=== PATIENT | female | born 1945 | race Caucasian/White ===

== ENCOUNTER → 2018-01-16 | Outpatient (CLI) | payer MEDICARE, OTHER ==
[~2018-01-16] MED LIST: ALPR.5 PO; CLIN150 PO; CONEST.3; DEPLIN PO; DIAZ5 PO; FLUO10; GLIP10 PO; LEVFLO500 PO; LEVSOD100 PO; MAGCHL64ER; MORP15ER PO; POTA10T PO; POTBIC25; PRED20 PO; ROSU10TA PO; RXALBOI INH; TRIHYD5075; [UNRECOGNIZED DRUG - OTHER]
[2018-01-16 17:19] LABS: BASOPHILS ABSOLUTE AUTO 0.05 K/mm3 (0.00-0.23); BASOPHILS PERCENT AUTO 1 % (0-2); EOSINOPHILS ABSOLUTE AUTO 0.13 K/mm3 (0.00-0.68); EOSINOPHILS PERCENT AUTO 1 % (0-6); Hematocrit 46.2 % (33.0-51.0); Hemoglobin 15.3 g/dL (11.5-16.0); IMMATURE GRAN ABSOLUTE AUTO 0.03 K/mm3 (0.00-0.10); IMMATURE GRAN PERCENT AUTO 0 % (0-1); LYMPHOCYTES ABSOLUTE AUTO 4.93 K/mm3 (0.84-5.20); LYMPHOCYTES PERCENT AUTO 47 % (21-46); MONOCYTES PERCENT AUTO 6 % (4-13); Mean Corpuscular HGB 28.8 pg (26.0-34.0); Mean Corpuscular HGB Conc 33.1 g/dL (31.5-36.5); Mean Corpuscular Volume 87 fL (80-100); Mean Platelet Volume 10.3 fL (9.1-12.4); NEUTROPHILS PERCENT AUTO 46 % (41-73); Platelet Count 269 K/mm3 (150-400); RDW Coefficient Variation 13.1 % (11.7-14.2); Red Blood Cell Count 5.31 M/mm3 (3.80-5.20); White Blood Cell Count 10.54 K/mm3 (4.00-11.30)
[2018-01-16 17:35] LABS: Anion Gap 8 mmol/L (6-16); Blood Urea Nitrogen 13 mg/dL (8-24); Bun/Creatinine Ratio 17.8 (12.0-20.0); CO2, Blood 32 mmol/L (21-32); Calcium, Blood 9.5 mg/dL (8.5-10.1); Chloride, Blood 100 mmol/L (98-108); Creatinine, Blood 0.73 mg/dL (0.40-1.00); Glomerular Filtration Rate >60 (60-); Glucose, Blood 100 mg/dL (70-99); Potassium, Blood 3.7 mmol/L (3.5-5.5); Sodium, Blood 140 mmol/L (136-145); Thyroid Stimulating Hormone 0.122 uIU/mL (0.360-4.800)
[2018-01-16 17:36] LABS: Troponin I <0.017 ng/mL (0.000-0.040)
== END | disposition home or self-care (01) ==
LOC: LAB SHORT 17:10 → LAB EV 17:10
PROVIDERS: Family Medicine
DX: R00.2 Palpitations (principal)
CPT/HCPCS: 80048; 83880; 84443; 84484; 85025

== ENCOUNTER → 2018-01-28 | Outpatient (CLI) | payer MEDICARE, OTHER ==
[2018-01-28 16:02] LABS: Source, Urine Clean Catch
[2018-01-28 17:33] LABS: Appearance, Urine Clear (Clear); Bilirubin, Urine Neg (Neg); Blood, Urine 1+ (Neg); Color, Urine Yellow (P-Yellow); Glucose Qualitative, Urine Neg (Neg); Ketones, Urine Neg (Neg); Leukocyte Esterase, Urine 2+ (Neg); Nitrite, Urine Neg (Neg); Protein, Urine Neg (Neg); Specific Gravity, Urine 1.005 (1.003-1.022); Urobilinogen, Urine NORM (Normal)
[2018-01-28 18:08] LABS: White Blood Cells, Urine 25-50 /hpf (0-5)
[2018-01-28 18:09] LABS: Bacteria Mod /hpf; Squamous Epithelial Cells Few /hpf (Few)
== END | disposition home or self-care (01) ==
LOC: LAB SHORT 15:00 → LAB 15:00 → EDSTATUS 01-28 15:20 → LAB FUT 01-28 15:20
PROVIDERS: Internal Medicine
DX: R30.0 Dysuria (principal)
CPT/HCPCS: 81001

== ENCOUNTER → 2018-02-05 | Outpatient (CLI) | payer MEDICARE, OTHER | END | disposition home or self-care (01) | LOC: LAB EV 14:04 → LAB SHORT 14:04 | DX: R35.0 Frequency of micturition (principal) | CPT/HCPCS: 87086 ==

== ENCOUNTER → 2019-07-18 | Outpatient (CLI) | payer MEDICARE, OTHER | END | disposition home or self-care (01) | LOC: LAB SHORT 17:54 → LAB 17:54 | DX: N39.0 Urinary tract infection, site not specified (principal); R30.9 Painful micturition, unspecified | CPT/HCPCS: 87077; 87086; 87186 ==

== ENCOUNTER 2020-06-26 21:37 | Emergency (ER) | payer MEDICARE, OTHER ==
[~2020-06-26] VITALS: Ht 154.9 cm; Wt 80.7 kg
[~2020-06-26 21:37] MED LIST changes: +ALBU90OI; +BASAGLAR K100 UNIT/1 SC; -FLUO10; +FLUO10 PO; +METPHE10 PO; +TEMA15 PO; +TRULICITY0.75 MG/01 SC
[2020-06-26 22:12] LABS: BASOPHILS ABSOLUTE AUTO 0.05 K/mm3 (0.00-0.23); BASOPHILS PERCENT AUTO 0 % (0-2); EOSINOPHILS ABSOLUTE AUTO 0.15 K/mm3 (0.00-0.68); EOSINOPHILS PERCENT AUTO 1 % (0-6); Hematocrit 43.6 % (33.0-51.0); Hemoglobin 14.3 g/dL (11.5-16.0); IMMATURE GRAN ABSOLUTE AUTO 0.05 K/mm3 (0.00-0.10); IMMATURE GRAN PERCENT AUTO 0 % (0-1); LYMPHOCYTES ABSOLUTE AUTO 4.96 K/mm3 (0.84-5.20); LYMPHOCYTES PERCENT AUTO 44 % (21-46); MONOCYTES ABSOLUTE AUTO 0.69 K/mm3 (0.16-1.47); MONOCYTES PERCENT AUTO 6 % (4-13); Mean Corpuscular HGB 29.5 pg (26.0-34.0); Mean Corpuscular HGB Conc 32.8 g/dL (31.5-36.5); Mean Corpuscular Volume 90 fL (80-100); Mean Platelet Volume 9.6 fL (9.1-12.4); NEUTROPHILS ABSOLUTE AUTO 5.44 K/mm3 (1.96-9.15); NEUTROPHILS PERCENT AUTO 48 % (41-73); Platelet Count 256 K/mm3 (150-400); RDW Coefficient Variation 12.6 % (11.7-14.2); RDW Standard Deviation 41.5 fL (35.1-46.3); Red Blood Cell Count 4.85 M/mm3 (3.80-5.20); White Blood Cell Count 11.34 K/mm3 (4.00-11.30)
[2020-06-26 22:29] LABS: Alanine Aminotransfer (ALT/SGP 27 U/L (12-78); Albumin/Globulin Ratio 0.8 (0.8-1.8); Alk Phos 136 U/L (50-136); Anion Gap 7 mmol/L (6-16); Aspartate Aminotrans (AST/SGOT 22 U/L (12-37); Bilirubin, Total 0.4 mg/dL (0.1-1.0); Blood Urea Nitrogen 16 mg/dL (8-24); Bun/Creatinine Ratio 22.3 (12.0-20.0); CO2, Blood 30 mmol/L (21-32); Calcium, Blood 8.5 mg/dL (8.5-10.1); Chloride, Blood 103 mmol/L (98-108); Creatinine, Blood 0.72 mg/dL (0.40-1.00); Globulin, Blood 3.6 g/dL (2.2-4.0); Glomerular Filtration Rate >60 (60-); Glucose, Blood 201 mg/dL (70-99); Potassium, Blood 3.1 mmol/L (3.5-5.5); Sodium, Blood 140 mmol/L (136-145); Total Protein, Blood 6.6 g/dL (6.4-8.2); Troponin I <0.015 ng/mL (0.000-0.040)
[2020-06-27] MEDS ORDERED: TIMO.25OPS BOTHEYES (01:55)
== END 2020-06-27 01:56 | disposition home or self-care (01) ==
LOC: ER 21:37
PROVIDERS: Emergency Medicine
DX: R55 Syncope and collapse (principal); E11.9 Type 2 diabetes mellitus without complications; E03.9 Hypothyroidism, unspecified; Z79.4 Long term (current) use of insulin; Z88.2 Allergy status to sulfonamides; Z88.0 Allergy status to penicillin; Z88.1 Allergy status to other antibiotic agents; Z88.6 Allergy status to analgesic agent; Z88.8 Allergy status to other drugs, medicaments and biological substances; Z79.899 Other long term (current) drug therapy
CPT/HCPCS: 36415; 71045; 80053; 84484; 85025; 93005; 93010; 99285-25

== ENCOUNTER 2020-08-04 12:48 | Emergency (ER) | payer MEDICARE, OTHER ==
[~2020-08-04] VITALS: Ht 154.9 cm; Wt 81.2 kg
[~2020-08-04 12:48] MED LIST changes: +TIMO.25OPS BOTHEYES
[2020-08-04 14:24] LABS: Influenza A, PCR NEGATIVE (NEGATIVE); Influenza B, PCR NEGATIVE (NEGATIVE); Resp Syncytial Virus, PCR NEGATIVE (NEGATIVE)
[2020-08-04 14:26] LABS: SARS-Cov-2 (COVID-19) PCR, MMC POSITIVE (NEGATIVE)
[2020-08-04 14:26] LABS: BASOPHILS ABSOLUTE AUTO 0.03 K/mm3 (0.00-0.23); BASOPHILS PERCENT AUTO 0 % (0-2); EOSINOPHILS ABSOLUTE AUTO 0.01 K/mm3 (0.00-0.68); EOSINOPHILS PERCENT AUTO 0 % (0-6); Hematocrit 45.5 % (33.0-51.0); Hemoglobin 15.3 g/dL (11.5-16.0); IMMATURE GRAN ABSOLUTE AUTO 0.05 K/mm3 (0.00-0.10); IMMATURE GRAN PERCENT AUTO 1 % (0-1); LYMPHOCYTES ABSOLUTE AUTO 1.55 K/mm3 (0.84-5.20); LYMPHOCYTES PERCENT AUTO 15 % (21-46); MONOCYTES ABSOLUTE AUTO 0.57 K/mm3 (0.16-1.47); MONOCYTES PERCENT AUTO 5 % (4-13); Mean Corpuscular HGB 29.8 pg (26.0-34.0); Mean Corpuscular HGB Conc 33.6 g/dL (31.5-36.5); Mean Corpuscular Volume 89 fL (80-100); Mean Platelet Volume 9.2 fL (9.1-12.4); NEUTROPHILS ABSOLUTE AUTO 8.31 K/mm3 (1.96-9.15); NEUTROPHILS PERCENT AUTO 79 % (41-73); Platelet Count 180 K/mm3 (150-400); RDW Coefficient Variation 11.9 % (11.7-14.2); RDW Standard Deviation 39.2 fL (35.1-46.3); Red Blood Cell Count 5.13 M/mm3 (3.80-5.20); White Blood Cell Count 10.52 K/mm3 (4.00-11.30)
[2020-08-04 14:53] LABS: Alanine Aminotransfer (ALT/SGP 35 U/L (12-78); Albumin, Blood 2.5 g/dL (3.4-5.0); Albumin/Globulin Ratio 0.6 (0.8-1.8); Alk Phos 120 U/L (50-136); Anion Gap 8 mmol/L (6-16); Aspartate Aminotrans (AST/SGOT 34 U/L (12-37); Bilirubin, Total 0.6 mg/dL (0.1-1.0); Blood Urea Nitrogen 12 mg/dL (8-24); Bun/Creatinine Ratio 17.4 (12.0-20.0); CO2, Blood 27 mmol/L (21-32); Calcium, Blood 8.5 mg/dL (8.5-10.1); Chloride, Blood 103 mmol/L (98-108); Creatinine, Blood 0.69 mg/dL (0.40-1.00); Globulin, Blood 4.1 g/dL (2.2-4.0); Glomerular Filtration Rate >60 (60-); Glucose, Blood 142 mg/dL (70-99); Potassium, Blood 3.2 mmol/L (3.5-5.5); Sodium, Blood 138 mmol/L (136-145); Total Protein, Blood 6.6 g/dL (6.4-8.2)
[2020-08-04] MEDS ORDERED: DEXA4 PO (15:23)
[2020-08-04] MEDS ORDERED: ALBU2.5V5 INH (15:23)
== END 2020-08-04 15:48 | disposition home or self-care (01) ==
LOC: ER 12:48
PROVIDERS: Emergency Medicine
DX: U07.1 COVID-19 (principal); E11.9 Type 2 diabetes mellitus without complications; E03.9 Hypothyroidism, unspecified; Z88.0 Allergy status to penicillin; Z88.1 Allergy status to other antibiotic agents; Z79.899 Other long term (current) drug therapy; Z79.84 Long term (current) use of oral hypoglycemic drugs; Z88.2 Allergy status to sulfonamides; Z88.8 Allergy status to other drugs, medicaments and biological substances; Z88.6 Allergy status to analgesic agent
CPT/HCPCS: 0241U; 36415; 71045; 80053; 85025; 93005; 93010; 96374; 99285-25; J1100

== ENCOUNTER 2021-01-05 12:18 | Day surgery (SDC) | payer MEDICARE, OTHER ==
[~2021-01-05] VITALS: Ht 154.9 cm; Wt 85.6 kg
[~2021-01-05 12:18] MED LIST changes: +ALBU2.5V5 INH; +DEXA4 PO
[2021-01-05] MEDS ORDERED: INSULANI (12:39)
--- NOTE | 2021-01-05 12:50 | NUR ---
01/05/21 1250 Cecily Guillaume TETRACAINE AND PLEDGET PLACED IN LEFT EYE AT 1236 BY [facility].W
--- NOTE | 2021-01-05 13:47 | NUR ---
01/05/21 7475 LEAAN EVANGELISTA RN CALLED GRANDDAUGHTER TO DISCUSS DISCHARGE INSTRUCTIONS REQUESTED. CB/TAYO
== END 2021-01-05 13:56 | disposition home or self-care (01) ==
LOC: ORSCSDS 12:18
PROVIDERS: Ophthalmology
PROC: 08RK3JZ Replacement of Left Lens with Synthetic Substitute, Percutaneous Approach (ICD-10-PCS; principal; 2021-01-05 13:30)
DX: H25.12 Age-related nuclear cataract, left eye (principal); I10 Essential (primary) hypertension; E66.9 Obesity, unspecified; Z68.35 Body mass index [BMI] 35.0-35.9, adult; F41.8 Other specified anxiety disorders; Z79.899 Other long term (current) drug therapy
CPT/HCPCS: 82947; J2001; J2250; J3010; J3301; J7040; V2632

== ENCOUNTER 2021-11-27 03:51 | Emergency (ER) | payer MEDICARE, OTHER ==
[~2021-11-27] VITALS: Ht 154.9 cm; Wt 78.0 kg
[~2021-11-27 03:51] MED LIST changes: +INSULANI
[2021-11-27] MEDS ORDERED: Zithromax250 MG PO (05:22)
[2021-11-27] MEDS ORDERED: Prednisone20 MG PO (05:22)
== END 2021-11-27 05:58 | disposition home or self-care (01) ==
LOC: ER 03:51
DX: J44.1 Chronic obstructive pulmonary disease with (acute) exacerbation (principal); E11.9 Type 2 diabetes mellitus without complications; E03.9 Hypothyroidism, unspecified; Z88.0 Allergy status to penicillin; Z88.8 Allergy status to other drugs, medicaments and biological substances; Z88.1 Allergy status to other antibiotic agents; Z79.4 Long term (current) use of insulin; Z79.899 Other long term (current) drug therapy
CPT/HCPCS: 71045; A9270; J7512

== ENCOUNTER 2022-08-19 11:08 | Inpatient (IN) | payer MEDICARE, OTHER ==
[~2022-08-19] VITALS: Ht 154.9 cm; Wt 90.0 kg
[~2022-08-19 11:08] MED LIST changes: -INSULANI; +INSULANI SC; +Prednisone20 MG PO; +Zithromax250 MG PO
[2022-08-19 11:40] LABS: BASOPHILS ABSOLUTE AUTO 0.15 K/mm3 (0.00-0.23); BASOPHILS PERCENT AUTO 0 % (0-2); EOSINOPHILS ABSOLUTE AUTO 0.01 K/mm3 (0.00-0.68); EOSINOPHILS PERCENT AUTO 0 % (0-6); Hematocrit 42.1 % (33.0-51.0); Hemoglobin 14.5 g/dL (11.5-16.0); IMMATURE GRAN ABSOLUTE AUTO 0.85 K/mm3 (0.00-0.10); IMMATURE GRAN PERCENT AUTO 2 % (0-1); LYMPHOCYTES ABSOLUTE AUTO 2.87 K/mm3 (0.84-5.20); LYMPHOCYTES PERCENT AUTO 8 % (21-46); MONOCYTES ABSOLUTE AUTO 2.21 K/mm3 (0.16-1.47); MONOCYTES PERCENT AUTO 6 % (4-13); Mean Corpuscular HGB 29.5 pg (26.0-34.0); Mean Corpuscular HGB Conc 34.4 g/dL (31.5-36.5); Mean Corpuscular Volume 86 fL (80-100); Mean Platelet Volume 10.2 fL (9.1-12.4); NEUTROPHILS ABSOLUTE AUTO 29.78 K/mm3 (1.96-9.15); NEUTROPHILS PERCENT AUTO 83 % (41-73); Platelet Count 204 K/mm3 (150-400); RDW Coefficient Variation 12.2 % (11.7-14.2); RDW Standard Deviation 37.6 fL (35.1-46.3); Red Blood Cell Count 4.91 M/mm3 (3.80-5.20); White Blood Cell Count 35.87 K/mm3 (4.00-11.30)
[2022-08-19 11:55] LABS: Albumin, Blood 2.8 g/dL (3.4-5.0); Albumin/Globulin Ratio 0.8 (0.8-1.8); Bun/Creatinine Ratio 15.9 (12.0-20.0); Calcium, Blood 8.5 mg/dL (8.5-10.1); Creatinine, Blood 1.45 mg/dL (0.40-1.00); Globulin, Blood 3.5 g/dL (2.2-4.0); Potassium, Blood 3.3 mmol/L (3.5-5.5); Total Protein, Blood 6.3 g/dL (6.4-8.2)
[2022-08-19 14:31] LABS: Source, Urine Clean Catch
[2022-08-19 14:34] LABS: Appearance, Urine Hazy (Clear); Bilirubin, Urine Neg (Neg); Blood, Urine 1+ (Neg); Glucose Qualitative, Urine 2+ (Neg); Ketones, Urine Neg (Neg); Leukocyte Esterase, Urine Neg (Neg); Nitrite, Urine Neg (Neg); Protein, Urine 1+ (Neg); Urobilinogen, Urine NORM (Normal)
[2022-08-19 14:42] LABS: Color, Urine Pale Yellow (P-Yellow)
[2022-08-19 14:44] LABS: Bacteria Many /hpf
[2022-08-19 14:45] LABS: Red Blood Cells, Urine 0-2 /hpf (0-2); Squamous Epithelial Cells Few /hpf (Few)
[2022-08-19] MEDS ORDERED: FLOVENT HFA12 GM (18:02)
[2022-08-19] MEDS ORDERED: ROSUVASTATIN CA20 MG PO (18:04)
--- NOTE | 2022-08-19 18:53 | NUR ---
ADMISSION: PT ADMITTED FROM ER, ARRIVES A&Ox4, ANSWERS QUESTIONS APPROPRIATELY. PT DENIES SOB, O2 SATS >93% ON RA, DRY COUGH NOTED. SR ON MONITOR W/RATE 80s-90s. PT DENIES CP BUT DOES REPORT PAIN TO R SHOULDER/BACK AREA, PT RECEIVED PAIN MEDICATION IN ER AND REPORTS SOME IMPROVEMENT TO PAIN. PT AMBULATES TO/FROM RESTROOM W/SBA, TOLERATES WELL AND REPORTS MINIMAL WEAKNESS/DIZZINESS. MESSAGE LEFT FOR PALLIATIVE CARE DEPT RE: CONSULTATION. PT RESTING QUIETLY IN ROOM W/GRANDDAUGHTER AT BEDSIDE. WILL CONTINUE TO MONITOR AND TREAT ACCORDINGLY UNTIL CHANGE OF SHIFT.
[2022-08-20 04:59] LABS: Hemoglobin 12.3 g/dL (11.5-16.0); Mean Corpuscular HGB Conc 34.2 g/dL (31.5-36.5); Mean Corpuscular Volume 88 fL (80-100); Platelet Count 146 K/mm3 (150-400); RDW Coefficient Variation 12.5 % (11.7-14.2); RDW Standard Deviation 39.9 fL (35.1-46.3); White Blood Cell Count 31.75 K/mm3 (4.00-11.30)
--- NOTE | 2022-08-20 05:44 | NUR ---
SHIFT SUMMARY A/Ox4 AND COOPERATIVE WITH CARE PROVIDED BY MEMBERS OF STAFF. ANSWERS QUESTIONS APPROPRIATELY AND IS ABLE TO MAKE NEEDS KNOWN. PT DID NOT GET MUCH SLEEP LAST NIGHT FOR SHE MADE FREQUENT TRIPS TO THE BATHROOM TO VOID. MAINTAINED SPO2 >90% ON RA, INCREASED RR/SOB NOTED WITH EXERTION. CARDIAC ACUNA, NO C/O CP OR PRESSURE T/O MY SHIFT WITH HR HOLDING STEADY IN THE 90'S. SBO HAS BEEN SOFT FOR MOST OF THE SHIFT, BUT MAP >65 T/O THE NIGHT. CONTINUES TO GET FLUID AND MEDS FOR PAIN MANAGMENT ORDERED PER EMAR. BOTH BLOOD CULTURES CAME BACK POSITVE FOR GRAM POSITIVE COCCI IN CHAINS. SOME OF PT'S HOME DOSING OF LONG ACTING INSULIN STARTED LAST NIGHT. FAM STAYED IN ROOM WITH PT OVER NIGHT. NO NEW ORDERS AT THIS TIME, WILL REPORT TO DAY SHIFT RN
[2022-08-20 05:46] LABS: Bun/Creatinine Ratio 23.3 (12.0-20.0); Calcium, Blood 7.6 mg/dL (8.5-10.1); Creatinine, Blood 1.03 mg/dL (0.40-1.00); Potassium, Blood 4.9 mmol/L (3.5-5.5); Thyroxine (T4) 8.5 ug/dL (4.8-13.9)
[2022-08-20] MEDS ORDERED: PROZAC40 MG PO (08:09)
[2022-08-20] MEDS ORDERED: LORAZEPAM0.5 MG PO (10:25)
--- NOTE | 2022-08-20 16:24 | NUR ---
SHIFT SUMMARY/TRANSFER: PT A&Ox4 T/OUT DAY, TREATED x1 FOR C/O FEELING ANXIOUS, COOPERATIVE W/CARE. OCCASIONAL, CONGESTED COUGH. PT DENIES SOB, MILD DYSPNEA NOTED W/ACTIVITY, O2 SATS >93% ON RA. SR ON MONITOR W/RATE 80s-100s, PT DENIES CHEST PAIN. PT REPORTS MILD WEAKNESS, SBA FOR AMBULATION, TOLERATES WELL. ADA DIET HAS BEEN ORDERED, ACHS BLOOD GLUCOSE CHECKS IN PLACE. HOME MEDICATIONS HAVE BEEN ORDERED AND ADMINISTERED PER ORDERS. PT STATUS CHANGED TO MEDICAL, RECEIVED NEW ROOM, TRANSFERS W/OUT INCIDENT. REPORT TO CARO, RECEIVING RN.
--- NOTE | 2022-08-20 18:00 | NUR ---
SHIFT SUMMARY 1645 RECEIVED PT TO 330 VIA BED FROM PCU 19. PT'S FAMILY TO WITH PT. FAMILY WANTING A RECLINER OBTAINED IMMEDIATELY TO IN ORDER TO SPEND THE NIGHT. PT WANTING MAINTENCE CALLED IMMEDIATELY TO TURN DOWN HEAT; [facility]. IV ABX STARTED PER EMAR. IVF'S INFUSING WELL. PT ADMITTED FOR RECURRENT PNM. ORIENTED TO . CALL LT IN REACH.
[2022-08-21 05:49] LABS: Hematocrit 33.7 % (33.0-51.0); Hemoglobin 11.3 g/dL (11.5-16.0); Mean Corpuscular HGB Conc 33.5 g/dL (31.5-36.5); Mean Corpuscular Volume 87 fL (80-100); Mean Platelet Volume 10.5 fL (9.1-12.4); Platelet Count 160 K/mm3 (150-400); RDW Coefficient Variation 12.8 % (11.7-14.2); RDW Standard Deviation 40.6 fL (35.1-46.3); Red Blood Cell Count 3.89 M/mm3 (3.80-5.20)
[2022-08-21 06:25] LABS: Bun/Creatinine Ratio 18.5 (12.0-20.0); Calcium, Blood 8.1 mg/dL (8.5-10.1); Creatinine, Blood 0.81 mg/dL (0.40-1.00); Potassium, Blood 3.3 mmol/L (3.5-5.5)
--- NOTE | 2022-08-21 11:14 | NUR ---
CONTACTED PT C/O RUQ PAIN W/ INSPIRATION AND EXPIRATION. REPOSITIONED, RECENTLY MEDICATED PER EMAR FOR PAIN. HX OF GALBLADDER REMOVAL.
--- NOTE | 2022-08-21 13:03 | NUR ---
CASE CONF WITH BOAZ RN, SHE REPORTS PT IS EXPERIENCING INCREASED R SIDED SHARP CP WITH ACTIVITY AND BREATHING, POSSIBLY PLEURITIC PAIN AND WAS MEDICATED WITH PAIN MEDICATION AND ANXIETY MEDICATION. MET WITH PT ANS FAMILY IN ROOM. PT IS SITTING UPRIGHT IN BED, REPORTS SHE SLEPT WELL LAST NIGHT FOR THE FIRST TIME. C/O SHARP STABBING R SIDED CP WHICH MAKES IT DIFF TO MOVE OR TAKE DEEP BREATHS. PT REPORTS PAIN AND ANXIETY MEDICATION SEEMS TO HELP. FAMILY WITH CONCERNS ABOUT PT PAIN MANAGEMENT, PROV. EDUCATION THAT THE PAIN MEDICATION IS NEEDED EVERY 6 HOURS AND SHE WILL NEED TO ASK FOR IT, THEY VU. CONCERNS WITH PT SHE FEELS VERY FATIGUED AND CONCERNS OF PAIN WITH MOVEMENT. ENCOURAGE PT TO ASK FOR PAIN MEDICATION TO STAY ON TOP OF HER PAIN SO SHE CAN PARTICIPATE IN PT SO SHE CAN GET STRONGER TO GO HOME, SHE VU. ADVISED I WILL ASK FOR AN INCENTIVE SPIROMETER TO HELP PT TAKE DEEPER BREATHS. PER DTR, PT LIVES WITH HER GRANDDAUGHTER. MINDY WHO TAKES CARE OF HER. SHE HAS NO CONCERNS AT THIS TIME ABOUT PT GOING DIGNA UPON DC. CURRENT PLAN IS TO GO HOME WITH HH. PLAN TO CALL GRANDTR TO UPDATE HER AND DISCUSS ANY OTHER NEEDS OR CONCERNS. RN AT THE BEDSIDE, PT REPORTS PAIN IS STILL 8/10, RECEIVED PAIN MEDICATION APPROX 45 MINUTES AGO AND WILL GIVE SOME TYLENOL. CALL PLACED TO DR GUILLEN TO GET ORDER FOR INCENTIVE SPIROMETER, HE IS AGREEABLE AND WILL PLACE THE ORDER. RN UPDATED. PALLIATIVE CARE WILL CONT TO FOLLOW
--- NOTE | 2022-08-21 13:30 | NUR ---
TC TP PT MINDY, PT CG AND GRMIRZATR. UPDATED HER ON PT STATUS TODAY. MINDY HAS NO CONCERNS, JUST WANTS PT TO FEEL BETTER AND BE STRONG ENOUGH TO GO HOME SAFELY. SHE IS INTERESTED IN HH PT WHEN PT IS DCD. PT CURRENTLY HAS 4WW AND BS COMMODE AT HOME AND MINDY HELPS HER WITH ADLS ETC AT HOME. ADVISED HER THAT PALLIATIVE CARE WILL CONTINUE TO FOLLOW, HELP WITH SYMPTOM MANAGEMENT AND PROVIDED SUPPORT NEEDED AND SHE IS GRATEFUL FOR THIS. ADVISED I WILL MAKE ANOTHER VISIT TOMORROW AND GIVE HER A CALL IF SHE ISNT ABLE TO COME TO THE HOSPITAL. SHE IS AGREEABLE TO THIS. PALLIATIVE CARE WILL CONT TO FOLLOW.
--- NOTE | 2022-08-21 18:04 | NUR ---
SHIFT SUMMARY PT A&OX4 AND IN PLEASENT MOOD T/O SHIFT. PAIN MEDICATED PER EMAR. DAUGHTER AT BEDSIDE T/O SHIFT. CALL LIGHT W/IN REACH. C/O PAIN UNDER RIGHT BREAST REPORTED TO I/S PROVIDED AND PT EDUCATED ON USE. VSS. CALL LIGHT W/ IN REACH. TOLERATING PO INTAKE WELL.
[2022-08-22 05:21] LABS: Hematocrit 35.9 % (33.0-51.0); Hemoglobin 11.8 g/dL (11.5-16.0); Mean Corpuscular HGB 28.7 pg (26.0-34.0); Mean Corpuscular HGB Conc 32.9 g/dL (31.5-36.5); Mean Corpuscular Volume 87 fL (80-100); Mean Platelet Volume 10.3 fL (9.1-12.4); Platelet Count 166 K/mm3 (150-400); RDW Coefficient Variation 12.8 % (11.7-14.2); RDW Standard Deviation 40.9 fL (35.1-46.3); Red Blood Cell Count 4.11 M/mm3 (3.80-5.20)
[2022-08-22 05:39] LABS: Bun/Creatinine Ratio 20.1 (12.0-20.0); Calcium, Blood 8.7 mg/dL (8.5-10.1); Creatinine, Blood 0.7 mg/dL (0.40-1.00); Potassium, Blood 4.2 mmol/L (3.5-5.5)
--- NOTE | 2022-08-22 18:18 | NUR ---
SHIFT SUMMARY NO ACUTE EVENTS. PTN C/O OF PAIN RIGHT RIB AREA AND BACK THROUGH TO THE BACK. CHEST X-RAY DONE TODAY. DAUGHTER IN ROOM, ADVOCATE FOR PTN. PTN HAS SOME ANXIETY, COVERED PER EMAR. CONTINUE TO MONITOR.
--- NOTE | 2022-08-23 03:24 | NUR ---
SHIFT SUMMARY NOC PT A/O X 4. PLEASANT AND COOPERATIVE WITH CARE. PT DAUGHTER STAYED NIGHT WITH PT. PT HAD C/O OF PAIN UNDER R RIB CAGE AND MEDICATED WITH NORCO. PT ALSO HAD SOME ANXIETY AND MEDICATED PER EMAR. PT IS CURRENTLY RESTING WITH BED IN LOWEST POSITION, AND CALL LIGHT WITHIN REACH.
--- NOTE | 2022-08-23 03:50 | NUR ---
SHIFT SUMMARY NOC PT A/O X 4. PLEASANT AND COOPERATIVE WITH CARE. PT DAUGHTER STAYED NIGHT WITH PT. PT HAD C/O OF PAIN UNDER R RIB CAGE AND MEDICATED WITH NORCO. PT ALSO HAD SOME ANXIETY AND MEDICATED PER EMAR. PT HS CBG WAS 324 AND 2 UNITS SHORT ACTING INSULIN GIVEN FOR COVERAGE. PT IS CURRENTLY RESTING WITH BED IN LOWEST POSITION, AND CALL LIGHT WITHIN REACH.
[2022-08-23] MEDS ORDERED: Norco 5-325 Ta1 EACH PO (09:58)
[2022-08-23] MEDS ORDERED: AZIT500 PO (09:59)
--- NOTE | 2022-08-23 15:51 | NUR ---
SHIFT SUMMARY PTN D/C AT 1230. D/C PAPERWORK REVIEWED WITH PTN AND FAMILY. MEDICATIONS NEEDED FAXED TO PHARMACY AND HARD COPIES OF MEDICATIONS WRITTEN NEEDED. PTN'S DAUGHTER STAYED WITH PTN ENTIRE VISIT, ADVOCATE. PTN CONTINUED TO HAVE PAIN, BUT LESS PAIN AND ANXIETY THIS SHIFT, ANTICIPATING D/C TO HOME. NO SOB NOTED THIS SHIFT, SOME COURSE SOUNDS NOTED TO LUNGS. PTN IS USING INCENTIVE SPIROMETER REGULARLY INSTRUCTED. PTN ESCORTED VIA WC BY DESI ETIENNE TO EXIT WHERE MET BY SIOMARA FOR TRANSPORT HOME.
== END 2022-08-23 12:20 | disposition home health service (06) | DRG 871 ==
LOC: ER 11:08 → PCU 15:56 → MEDS 08-20 16:08
PROVIDERS: Student in an Organized Health Care Education/Training Program; ADMIT Internal Medicine
DX: A40.3 Sepsis due to Streptococcus pneumoniae (principal); J13 Pneumonia due to Streptococcus pneumoniae; R65.20 Severe sepsis without septic shock; N17.9 Acute kidney failure, unspecified; E87.20 Acidosis, unspecified; E87.1 Hypo-osmolality and hyponatremia; E87.6 Hypokalemia; E03.9 Hypothyroidism, unspecified; R09.1 Pleurisy; M54.2 Cervicalgia; M79.10 Myalgia, unspecified site; F41.8 Other specified anxiety disorders; E11.65 Type 2 diabetes mellitus with hyperglycemia; Z88.0 Allergy status to penicillin; Z88.8 Allergy status to other drugs, medicaments and biological substances; Z88.1 Allergy status to other antibiotic agents; Z88.2 Allergy status to sulfonamides; Z79.899 Other long term (current) drug therapy; Z79.51 Long term (current) use of inhaled steroids; Z79.4 Long term (current) use of insulin; Z79.52 Long term (current) use of systemic steroids; Z79.2 Long term (current) use of antibiotics; Z86.79 Personal history of other diseases of the circulatory system; Z90.710 Acquired absence of both cervix and uterus; Z90.49 Acquired absence of other specified parts of digestive tract; Z98.890 Other specified postprocedural states; Z86.16 Personal history of COVID-19; Z87.01 Personal history of pneumonia (recurrent)
CPT/HCPCS: 36415; 71046; 71260; 80048; 80053; 81001; 82947; 83605; 84145; 84436; 84484; 85025; 85027; 87040; 87086; 87186; 93005; 93010; 94640; 94664; 94760; 96365-59; 96366; 96367; 96375-59; 97110; 97116; 97162; 97530; 99285-25; A9270; J0780; J1650; J1815; J1956; J2405; J3370; J7030; J7512; Q9967

== ENCOUNTER 2022-09-24 11:51 | Emergency (ER) | payer MEDICARE, OTHER ==
[~2022-09-24] VITALS: Ht 162.6 cm; Wt 87.1 kg
[~2022-09-24 11:51] MED LIST changes: +AZIT500 PO; +FLOVENT HFA12 GM; +LORAZEPAM0.5 MG PO; +Norco 5-325 Ta1 EACH PO; +PROZAC40 MG PO; +ROSUVASTATIN CA20 MG PO
[2022-09-24 12:35] LABS: BASOPHILS ABSOLUTE AUTO 0.04 K/mm3 (0.00-0.23); BASOPHILS PERCENT AUTO 0 % (0-2); EOSINOPHILS ABSOLUTE AUTO 0.13 K/mm3 (0.00-0.68); EOSINOPHILS PERCENT AUTO 1 % (0-6); Hematocrit 46.9 % (33.0-51.0); Hemoglobin 15.2 g/dL (11.5-16.0); IMMATURE GRAN ABSOLUTE AUTO 0.04 K/mm3 (0.00-0.10); IMMATURE GRAN PERCENT AUTO 0 % (0-1); LYMPHOCYTES ABSOLUTE AUTO 3.43 K/mm3 (0.84-5.20); LYMPHOCYTES PERCENT AUTO 38 % (21-46); MONOCYTES ABSOLUTE AUTO 0.51 K/mm3 (0.16-1.47); MONOCYTES PERCENT AUTO 6 % (4-13); Mean Corpuscular HGB 28.4 pg (26.0-34.0); Mean Corpuscular HGB Conc 32.4 g/dL (31.5-36.5); Mean Corpuscular Volume 88 fL (80-100); Mean Platelet Volume 10.3 fL (9.1-12.4); NEUTROPHILS ABSOLUTE AUTO 4.84 K/mm3 (1.96-9.15); NEUTROPHILS PERCENT AUTO 54 % (41-73); Platelet Count 201 K/mm3 (150-400); RDW Coefficient Variation 12.7 % (11.7-14.2); RDW Standard Deviation 40.7 fL (35.1-46.3); Red Blood Cell Count 5.35 M/mm3 (3.80-5.20); White Blood Cell Count 8.99 K/mm3 (4.00-11.30)
[2022-09-24 12:55] LABS: Albumin, Blood 3.5 g/dL (3.4-5.0); Bilirubin, Total 0.5 mg/dL (0.1-1.0); Bun/Creatinine Ratio 21.5 (12.0-20.0); Calcium, Blood 9.1 mg/dL (8.5-10.1); Creatinine, Blood 0.7 mg/dL (0.40-1.00); Globulin, Blood 3.6 g/dL (2.2-4.0); Magnesium, Blood 1.8 mg/dL (1.6-2.4); Potassium, Blood 3.9 mmol/L (3.5-5.5); Total Protein, Blood 7.1 g/dL (6.4-8.2)
[2022-09-24] MEDS ORDERED: ELIQUIS5 M2 PO (16:57)
[2022-09-24 17:28] VITALS: BP 152/60
== END 2022-09-24 18:07 | disposition home or self-care (01) ==
LOC: ER 11:51
PROVIDERS: Physician Assistant
DX: I48.91 Unspecified atrial fibrillation (principal); E11.9 Type 2 diabetes mellitus without complications; I10 Essential (primary) hypertension; E03.9 Hypothyroidism, unspecified; Z88.5 Allergy status to narcotic agent; Z88.0 Allergy status to penicillin; Z88.1 Allergy status to other antibiotic agents; Z88.2 Allergy status to sulfonamides; Z88.8 Allergy status to other drugs, medicaments and biological substances; Z79.899 Other long term (current) drug therapy; Z79.4 Long term (current) use of insulin
CPT/HCPCS: 36415; 71045; 71260; 80053; 82947; 83735; 83880; 85025; 93005; 93010; 96374-59; 99285-25; A9270; Q9967

== ENCOUNTER → 2023-06-27 | Outpatient (CLI) | payer MEDICARE, OTHER ==
[~2023-06-27] MED LIST changes: +ELIQUIS5 M2 PO
== END ==
LOC: LAB 14:12 → LAB SHORT 14:12
DX: R30.0 Dysuria (principal)
CPT/HCPCS: 87077; 87086; 87186

== ENCOUNTER → 2023-08-29 | Outpatient (CLI) | payer MEDICARE, OTHER ==
[~2023-08-29] MED LIST changes: +ALBU90OI INH; +Crestor20 MG PO; +Crestor40 MG PO; +FAMO20 PO; +Flonase 0.05% N16 GM; +GUAI600T33 PO; +LEVAQUIN750 MG PO; +LORA.5 PO; +MELA3 PO; +METO50ER PO; +ROBITUSSIN30 MG/511 PO; +SERT100 PO; +Tessalon200 MG PO; +XARELTO20 MG PO
[2023-08-29 18:55] LABS: BASOPHILS ABSOLUTE AUTO 0.07 K/mm3 (0.00-0.23); BASOPHILS PERCENT AUTO 0 % (0-2); EOSINOPHILS ABSOLUTE AUTO 0.16 K/mm3 (0.00-0.68); EOSINOPHILS PERCENT AUTO 1 % (0-6); Hemoglobin 14.8 g/dL (11.5-16.0); IMMATURE GRAN ABSOLUTE AUTO 0.07 K/mm3 (0.00-0.10); IMMATURE GRAN PERCENT AUTO 0 % (0-1); LYMPHOCYTES ABSOLUTE AUTO 4.68 K/mm3 (0.84-5.20); LYMPHOCYTES PERCENT AUTO 24 % (21-46); MONOCYTES ABSOLUTE AUTO 1.43 K/mm3 (0.16-1.47); MONOCYTES PERCENT AUTO 7 % (4-13); Mean Corpuscular HGB 28.7 pg (26.0-34.0); Mean Corpuscular HGB Conc 33.6 g/dL (31.5-36.5); Mean Corpuscular Volume 85 fL (80-100); Mean Platelet Volume 10.6 fL (9.1-12.4); NEUTROPHILS ABSOLUTE AUTO 13.04 K/mm3 (1.96-9.15); NEUTROPHILS PERCENT AUTO 67 % (41-73); Platelet Count 225 K/mm3 (150-400); RDW Coefficient Variation 12.3 % (11.7-14.2); RDW Standard Deviation 38.5 fL (35.1-46.3); Red Blood Cell Count 5.16 M/mm3 (3.80-5.20); White Blood Cell Count 19.45 K/mm3 (4.00-11.30)
[2023-08-29 19:08] LABS: Albumin/Globulin Ratio 0.7 (0.8-1.8); Bilirubin, Total 0.9 mg/dL (0.1-1.0); Bun/Creatinine Ratio 16.4 (12.0-20.0); Calcium, Blood 9.1 mg/dL (8.5-10.1); Creatinine, Blood 0.73 mg/dL (0.40-1.00); Globulin, Blood 4.5 g/dL (2.2-4.0); Potassium, Blood 3.9 mmol/L (3.5-5.5); Total Protein, Blood 7.5 g/dL (6.4-8.2)
== END | disposition home or self-care (01) ==
LOC: LAB SHORT 18:00 → LAB 18:00
PROVIDERS: Nurse Practitioner Family
DX: R06.02 Shortness of breath (principal)
CPT/HCPCS: 80053; 83880; 85025

== ENCOUNTER 2023-08-30 09:45 | Inpatient (IN) | payer MEDICARE, OTHER ==
[~2023-08-30] VITALS: Ht 154.9 cm; Wt 88.2 kg
[~2023-08-30 09:45] MED LIST changes: -ALBU90OI INH; -Crestor20 MG PO; -Crestor40 MG PO; -FAMO20 PO; -Flonase 0.05% N16 GM; -GUAI600T33 PO; -LEVAQUIN750 MG PO; -LORA.5 PO; -MELA3 PO; -METO50ER PO; -ROBITUSSIN30 MG/511 PO; -SERT100 PO; -Tessalon200 MG PO; -XARELTO20 MG PO
[2023-08-30 10:55] LABS: BASOPHILS ABSOLUTE AUTO 0.08 K/mm3 (0.00-0.23); BASOPHILS PERCENT AUTO 0 % (0-2); EOSINOPHILS ABSOLUTE AUTO 0.15 K/mm3 (0.00-0.68); EOSINOPHILS PERCENT AUTO 1 % (0-6); Hematocrit 43.9 % (33.0-51.0); Hemoglobin 14.6 g/dL (11.5-16.0); IMMATURE GRAN ABSOLUTE AUTO 0.07 K/mm3 (0.00-0.10); IMMATURE GRAN PERCENT AUTO 0 % (0-1); LYMPHOCYTES ABSOLUTE AUTO 3.23 K/mm3 (0.84-5.20); LYMPHOCYTES PERCENT AUTO 17 % (21-46); MONOCYTES ABSOLUTE AUTO 1.49 K/mm3 (0.16-1.47); MONOCYTES PERCENT AUTO 8 % (4-13); Mean Corpuscular HGB 28.5 pg (26.0-34.0); Mean Corpuscular HGB Conc 33.3 g/dL (31.5-36.5); Mean Corpuscular Volume 86 fL (80-100); Mean Platelet Volume 9.9 fL (9.1-12.4); NEUTROPHILS ABSOLUTE AUTO 13.67 K/mm3 (1.96-9.15); NEUTROPHILS PERCENT AUTO 73 % (41-73); Platelet Count 229 K/mm3 (150-400); RDW Coefficient Variation 12.2 % (11.7-14.2); RDW Standard Deviation 38.7 fL (35.1-46.3); Red Blood Cell Count 5.13 M/mm3 (3.80-5.20); White Blood Cell Count 18.69 K/mm3 (4.00-11.30)
[2023-08-30 11:19] LABS: Albumin, Blood 2.9 g/dL (3.4-5.0); Albumin/Globulin Ratio 0.6 (0.8-1.8); Bilirubin, Total 0.9 mg/dL (0.1-1.0); Bun/Creatinine Ratio 13.1 (12.0-20.0); Creatinine, Blood 0.84 mg/dL (0.40-1.00); Globulin, Blood 4.5 g/dL (2.2-4.0); Total Protein, Blood 7.4 g/dL (6.4-8.2)
[2023-08-30] MEDS ORDERED: Albuterol 2.5 MG/3 ML VIAL INH PRN (13:20)
[2023-08-30] MEDS ORDERED: Acetaminophen 325 MG TABLET PO PRN (13:20)
[2023-08-30] MEDS ORDERED: HYDROcodone 5-APAP 325 TAB PO PRN (13:25)
[2023-08-30] MEDS ORDERED: LevoFLOXacin 750 MG/D5W 150ML 150 ML IV SCH (14:00)
[2023-08-30 16:09] VITALS: BP 149/69
[2023-08-30] MEDS ORDERED: XARELTO20 MG PO (16:22)
[2023-08-30] MEDS ORDERED: SERT100 PO (16:23)
[2023-08-30] MEDS ORDERED: METO50ER PO (16:25)
[2023-08-30] MEDS ORDERED: Crestor40 MG PO (16:26)
[2023-08-30] MEDS ORDERED: Insulin Human Lispro 100 Units/ML 3ML Syringe SC SCH (16:30)
[2023-08-30] MEDS ORDERED: MELA3 PO (17:41)
--- NOTE | 2023-08-30 17:51 | NUR ---
SHIFT SUMMARY AND ADMISSION PATIENT ALERT AND INTERACTIVE. EASILY SOB WITH ACTIVITY. PATIENT ON RA. PATIENT VERBALIZING SOME R LOWER RIB PAIN THAT INCREASES WITH COUGHING. PATIENT STATES THAT SHE HAS BEEN COUGHING FOR THE LAST FEW DAYS AND WAS UP ALL NIGHT COUGHING. FAMILY STATES THAT THEY HAVE ALL BEEN SICK AT HOME. PATIENT AMBULATORY BUT WEAK BECAUSE OF RECENT ILLNESS. PATIENT STATES SHE IS A LITTLE UNSTEADY ON HER FEET AT TIMES. PATIENT DENIES ANY RECENT FALLS.
[2023-08-30] MEDS ORDERED: Guaifenesin/Dextromethorphan Syrup 5 ML UDC PO PRN (18:00)
[2023-08-30 19:28] VITALS: BP 122/40
[2023-08-30] MEDS ORDERED: Famotidine 20 MG Tab PO SCH (21:00)
[2023-08-30] MEDS ORDERED: Benzonatate 100 MG Cap PO SCH (21:00)
[2023-08-30] MEDS ORDERED: Insulin Glargine-Yfgn 100 Unit/mL 3 ML SYR SC SCH (21:00)
[2023-08-30] MEDS ORDERED: Lactobacil 2-S.Thermo-Bifido 1 1 Cap PO SCH (21:00)
[2023-08-30] MEDS ORDERED: GuaiFENesin 600 MG TabCR PO SCH (21:00)
[2023-08-30] MEDS ORDERED: Rosuvastatin Calcium 10 MG Tab PO SCH (21:00)
[2023-08-30] MEDS ORDERED: Melatonin 3 MG Tab PO SCH (21:00)
[2023-08-30] MEDS ORDERED: Apixaban 5 MG Tab PO SCH (21:00)
[2023-08-30 21:57] LABS: Adenovirus Not Detected (NOT DETECT); Bordetella pertussis Not Detected (NOT DETECT); Chlamydophila pneumoniae Not Detected (NOT DETECT); Coronavirus 229E Not Detected (NOT DETECT); Coronavirus HKU1 Not Detected (NOT DETECT); Coronavirus NL63 Not Detected (NOT DETECT); Coronavirus OC43 Not Detected (NOT DETECT); Human Metapneumovirus Not Detected (NOT DETECT); Human Rhinovirus/Enterovirus Not Detected (NOT DETECT); Influenza A/2009-H1 Not Detected (NOT DETECT); Influenza A/H1 Not Detected (NOT DETECT); Influenza A/H3 Not Detected (NOT DETECT); Influenza B Not Detected (NOT DETECT); Mycoplasma pneumoniae Not Detected (NOT DETECT); Parainfluenza Virus 1 Not Detected (NOT DETECT); Parainfluenza Virus 2 Not Detected (NOT DETECT); Parainfluenza Virus 3 Not Detected (NOT DETECT); Parainfluenza Virus 4 Not Detected (NOT DETECT); Respiratory Syncytial Virus Not Detected (NOT DETECT); SARS-Cov-2 (COVID-19), BioFire Not Detected (NOT DETECT)
[2023-08-30 22:02] VITALS: BP 166/66
[2023-08-31] MEDS ORDERED: LORazepam 0.5 MG Tab PO PRN (00:55)
--- NOTE | 2023-08-31 04:01 | NUR ---
COLD WORK OPERATOR SUMMARY PT A/OX4. PT AFFECT ANXIOUS WHEN AWAKE. PT ASKED THIS RN "i AM GOING TO TONIGHT" PT STATES SHE FEELS SCARED. PT ENDORSED GENERAL INCREASED WEAKNESS AND DIZZY WHEN STANDING. PT DENIES CHEST PAIN OR NAUSEA. PT GIVEN TYLENOL FOR GENERAL/BACK PAIN. PT AFEBRILE T/O THE NIGHT. PT DAUGHTER CALLED AND SPOKE TO THIS RN--DAUGHTER REPORTS PT CAN BE OVERLY ANXIOUS AND FEARFUL WHEN SICK. PT TAKES 0.5MG ATIVAN PRN FOR ANXIETY AT HOME. CALL TO MAINTENANCE CHIEF DR--NEW ORDER FOR 0.5MG ATIVAN PO PRN. ALSO OBTAINED NEW ORDER FOR TESSLAN SOILA. PT CONTINUES TO REPORT PRODUCTIVE COUGH.
[2023-08-31 04:33] VITALS: BP 143/64
[2023-08-31 05:09] LABS: Hematocrit 37.8 % (33.0-51.0); Hemoglobin 12.5 g/dL (11.5-16.0); Mean Corpuscular HGB 28.2 pg (26.0-34.0); Mean Corpuscular HGB Conc 33.1 g/dL (31.5-36.5); Mean Corpuscular Volume 85 fL (80-100); Mean Platelet Volume 10.2 fL (9.1-12.4); Platelet Count 195 K/mm3 (150-400); RDW Coefficient Variation 12.3 % (11.7-14.2); RDW Standard Deviation 38.5 fL (35.1-46.3); Red Blood Cell Count 4.44 M/mm3 (3.80-5.20); White Blood Cell Count 14.22 K/mm3 (4.00-11.30)
[2023-08-31 05:47] LABS: Bun/Creatinine Ratio 11.8 (12.0-20.0); Calcium, Blood 8.7 mg/dL (8.5-10.1); Creatinine, Blood 0.76 mg/dL (0.40-1.00); Potassium, Blood 3.7 mmol/L (3.5-5.5)
[2023-08-31] MEDS ORDERED: Levothyroxine Sodium 0.075 MG Tab PO SCH (06:00)
[2023-08-31 07:47] VITALS: BP 140/55
[2023-08-31] MEDS ORDERED: Misc. Injectable SC SCH (09:00)
[2023-08-31] MEDS ORDERED: Metoprolol Succinate 50 MG TABCR PO SCH ×2 (09:00→21:00)
[2023-08-31] MEDS ORDERED: FLUoxetine HCL 20 MG CAP PO SCH (09:00)
[2023-08-31] MEDS ORDERED: Sertraline HCl 50 MG Tab PO SCH (09:00)
[2023-08-31] MEDS ORDERED: Fluticasone 0.05% Nasal Spray SCH (09:00)
[2023-08-31] MEDS ORDERED: Furosemide 10 MG / ML 2ML Vial IV ONE (10:00)
[2023-08-31 12:16] LABS: Source, Urine Clean Catch
[2023-08-31 12:40] LABS: Appearance, Urine Hazy (Clear); Bilirubin, Urine Neg (Neg); Blood, Urine 1+ (Neg); Color, Urine Yellow (P-Yellow); Glucose Qualitative, Urine Neg (Neg); Ketones, Urine Neg (Neg); Leukocyte Esterase, Urine Neg (Neg); Nitrite, Urine Neg (Neg); Protein, Urine 2+ (Neg); Urobilinogen, Urine NORM (Normal); pH, Urine 6.5 (5.0-8.0)
[2023-08-31 12:46] LABS: Squamous Epithelial Cells Mod /hpf (Few)
[2023-08-31 12:47] LABS: Bacteria Many /hpf
[2023-08-31 12:48] LABS: Transitional Epithelial Cells Rare /hpf (0-Rare)
[2023-08-31 16:53] VITALS: BP 129/64
[2023-08-31] MEDS ORDERED: Rivaroxaban 10 MG Tab PO SCH (17:00)
--- NOTE | 2023-08-31 17:12 | NUR ---
SHIFT SUMMARY PT REPORTS FEELING A BIT BETTER AFTER TAKING A SHOWER THIS AFTERNOON. FAMILY IN TO VISIT THIS AFTERNOON. HAD A SHORT TIME LATE MORNING THAT SHE DOZED. STATES IT CAN BE DIFFICULT TO GET OOB AT TIMES. STATED SHE FEELS LIKE SHE "HAS WHIPLASH" DUE TO ALL HER COUGHING. HAS PRODUCTION WITH COUGHING. PREFERS FOOD PROVIDED BY FAMILY RATHER THAN FOOD FROM HOSPITAL. SHE SAYS SHE IS VERY PICKY.
[2023-08-31 20:37] VITALS: BP 119/71
[2023-08-31] MEDS ORDERED: Melatonin 5 MG Tablet PO SCH (21:00)
[2023-09-01 03:18] VITALS: BP 143/60
--- NOTE | 2023-09-01 06:41 | NUR ---
STRUCTURAL STEEL WORKER SUMMARY NO ACUTE EVENTS. PT A/OX4. PT SLEPT MORE RESTFUL THIS SHIFT THAN PREVIOUS EVENING. PT CONT TO COUGH--PT REPORTS SPUTUM IS LIGHTENING UP--OBSERVED MCDONALD COLOR SPUTUM. PT ABLE TO MAKE NEEDS KNOWN . CALL LIGHT IN REACH.
[2023-09-01 07:51] VITALS: BP 146/86
[2023-09-01 15:59] VITALS: BP 150/81
--- NOTE | 2023-09-01 18:18 | NUR ---
SHIFT SUMMARY SLEPT ON AND OFF THROUGH THE DAY AND LESS COUGHING THAN THE BEGINNING OF SHIFT. UP TO BATHROOM INDEPENDENTLY. POOR APPETITE DUE TO NOT LIKING MOST OF THE FOOD OFFERED. EATING FOOD FAMILY HAS BROUGHT IN AND A FEW THINGS LIKE FRUIT AND PUDDING. SOUNDS LESS WHEEZY THIS EVENING THAN THIS MORNING TOO.
[2023-09-01 19:55] VITALS: BP 142/66
--- NOTE | 2023-09-02 05:03 | NUR ---
PROCESS LABORATORY SPECIALIST SUMMARY NO ACUTE CHANGES. PT A/O4. ABLE TO MAKE NEEDS KNOWN. PT GIVEN COUGH SYRUP WITH CODINE X2. PT SLEPT MORE THAN PREVIOUS EVENING. HOWEVER PT DOES NOT FEEL SLEEP IS RESTFUL. PT COUGH IS PERSISTANT. PT FEELS WEAK AND REPORTS ONGOING POOR APPETITE. PT CALL APPROPRIATELY. CALL LIGHT IN REACH.
[2023-09-02 06:00] LABS: Hematocrit 37.9 % (33.0-51.0); Hemoglobin 12.8 g/dL (11.5-16.0); Mean Corpuscular HGB Conc 33.8 g/dL (31.5-36.5); Mean Corpuscular Volume 86 fL (80-100); Mean Platelet Volume 9.5 fL (9.1-12.4); Platelet Count 234 K/mm3 (150-400); RDW Coefficient Variation 12.5 % (11.7-14.2); RDW Standard Deviation 39.5 fL (35.1-46.3); Red Blood Cell Count 4.42 M/mm3 (3.80-5.20); White Blood Cell Count 13.23 K/mm3 (4.00-11.30)
[2023-09-02 06:16] LABS: Bun/Creatinine Ratio 12.3 (12.0-20.0); Calcium, Blood 8.9 mg/dL (8.5-10.1); Creatinine, Blood 0.9 mg/dL (0.40-1.00); Potassium, Blood 3.6 mmol/L (3.5-5.5)
[2023-09-02 07:31] VITALS: BP 141/58
[2023-09-02 15:35] VITALS: BP 117/47
[2023-09-02] MEDS ORDERED: Crestor20 MG PO (17:43)
--- NOTE | 2023-09-02 18:24 | NUR ---
SUMMARY- PT AAOX4 AND SBA. PT STILL HAS AGGRESSIVE COUGH. ROBITUSSIN GIVEN PRN. PT ON RA. NO ACUTE EVENTS THIS SHIFT.
[2023-09-02 20:17] VITALS: BP 139/71
[2023-09-03 01:57] VITALS: BP 119/61
--- NOTE | 2023-09-03 03:48 | NUR ---
NET TRAINER SUMMARY NO ACTUE CHANGES. PT HAD INTERMITTANT PERIODS OF SLEEP AND WAKEFULNESS T/O THE NIGHT. PT CONTINUES TO COUGH BUT THIS RN NOTED LESS COUGHING FROM PREVIOUS NIGHTS. PT REPORTS SHE ALSO FEELS SHE IS COUGHING LESS. PT ABLE TO MAKE NEEDS KNOWN. CALL LIGHT IN REACH.
[2023-09-03 07:21] VITALS: BP 142/60
[2023-09-03] MEDS ORDERED: Benzonatate 100 MG Cap PO SCH (14:00)
[2023-09-03 16:18] VITALS: BP 125/56
--- NOTE | 2023-09-03 16:48 | NUR ---
SHIFT SUMMARY PT RESTING IN BED MOST THE DAY. REPOSITIONING SELF WELL IN BED. WORKED WITH OCCUPATIONAL THERAPY TODAY. PT REFUSED PHYSICAL THERAPY, BUT OT RECOMMENDING SBA IN ROOM. PT DENIES PAIN THIS SHIFT. MEDICATED WITH COUGH MEDS SCHEDULED. VS REVIEWED. SPUTUM SAMPLE NEEDED. PT NOT ABLE TO PRODUCE SPECIMEN YET. NO OTHER ACUTE CHANGES IN ASSESSMENT AT THIS TIME. DENIES OTHER NEEDS AT THIS TIME. RESTING IN BED, WATCHING TV.
[2023-09-03 19:33] VITALS: BP 145/55
[2023-09-04 03:30] VITALS: BP 126/46
--- NOTE | 2023-09-04 04:23 | NUR ---
PIANO CASE AND BENCH ASSEMBLER SUMMARY PT A&O X4, PLEASANT. PT SLEPT THROUGH THE NIGHT. PT HAD A VISITOR AT BEDSIDE IN THE EVENING. NO S/S INSULIN COVERAGE NEEDED. MINIMAL AMOUNT OF COUGHING NOTED. NO ACUTE CHANGES THIS SHIFT. 09/04/23 DANAY YEE RN
[2023-09-04 07:28] VITALS: BP 133/59
[2023-09-04] MEDS ORDERED: ALBU2.5V5 INH (10:26)
[2023-09-04] MEDS ORDERED: ALBU90OI INH (10:26)
[2023-09-04] MEDS ORDERED: LORA.5 PO (10:28)
[2023-09-04] MEDS ORDERED: Tessalon200 MG PO (10:30)
[2023-09-04] MEDS ORDERED: FAMO20 PO (10:34)
[2023-09-04] MEDS ORDERED: ROBITUSSIN30 MG/511 PO (10:34)
[2023-09-04] MEDS ORDERED: GUAI600T33 PO (10:35)
[2023-09-04] MEDS ORDERED: Flonase 0.05% N16 GM (10:35)
[2023-09-04] MEDS ORDERED: LEVAQUIN750 MG PO (10:36)
--- NOTE | 2023-09-04 13:30 | NUR ---
PATIENT D/C'D TO HOME WITH GRANDDAUGHTER. DC INSTRUCTIONS AND EDUCATION DISCUSSED WITH PATIENT AND COPY PROVIDED. RX MEDICATION FAXED TO [facility]. PATIENT DENIES ANY FURTHER QUESTIONS OR CONCERNS. HOME HEALTH TO CONTACT PATIENT.
== END 2023-09-04 13:28 | disposition home health service (06) | DRG 871 ==
LOC: ER 09:45 → MEDS 15:18 → ENPENDDIS 09-04 10:44 → MEDS 09-04 13:28
PROVIDERS: Physician Assistant; ADMIT Internal Medicine
DX: A41.9 Sepsis, unspecified organism (principal); J18.9 Pneumonia, unspecified organism; J96.01 Acute respiratory failure with hypoxia; J40 Bronchitis, not specified as acute or chronic; I48.0 Paroxysmal atrial fibrillation; F32.A Depression, unspecified; F41.9 Anxiety disorder, unspecified; E03.9 Hypothyroidism, unspecified; E78.5 Hyperlipidemia, unspecified; E11.9 Type 2 diabetes mellitus without complications; Z79.01 Long term (current) use of anticoagulants; Z90.49 Acquired absence of other specified parts of digestive tract; Z88.8 Allergy status to other drugs, medicaments and biological substances; Z88.1 Allergy status to other antibiotic agents; Z88.2 Allergy status to sulfonamides; Z88.5 Allergy status to narcotic agent; Z88.6 Allergy status to analgesic agent; Z88.0 Allergy status to penicillin; Z79.51 Long term (current) use of inhaled steroids; Z79.899 Other long term (current) drug therapy; Z79.4 Long term (current) use of insulin
CPT/HCPCS: 0202U; 36415; 71046; 80048; 80053; 81001; 82947; 83605; 85025; 85027; 87040; 87086; 93306; 94640; 94664; 94760; 96365; 96366; 97110; 97162; 97165; 97530; 99285-25; A9270; J1815; J1940; J1956

== ENCOUNTER 2024-05-20 13:16 | Inpatient (IN) | payer MEDICARE, OTHER ==
[~2024-05-20] VITALS: Ht 154.9 cm; Wt 90.7 kg
[~2024-05-20 13:16] MED LIST changes: +ALBU90OI INH; +Crestor40 MG PO; +FAMO20 PO; +Flonase 0.05% N16 GM; +GUAI600T33 PO; +LEVAQUIN750 MG PO; +LORA.5 PO; +MELA3 PO; +METO50ER PO; +ROBITUSSIN30 MG/511 PO; +SERT100 PO; +Tessalon200 MG PO; +XARELTO20 MG PO
[2024-05-20 13:38] LABS: BASOPHILS ABSOLUTE AUTO 0.02 K/mm3 (0.00-0.23); BASOPHILS PERCENT AUTO 0 % (0-2); EOSINOPHILS ABSOLUTE AUTO 0.02 K/mm3 (0.00-0.68); EOSINOPHILS PERCENT AUTO 0 % (0-6); Hematocrit 39.3 % (33.0-51.0); IMMATURE GRAN ABSOLUTE AUTO 0.06 K/mm3 (0.00-0.10); IMMATURE GRAN PERCENT AUTO 0 % (0-1); LYMPHOCYTES ABSOLUTE AUTO 3.31 K/mm3 (0.84-5.20); LYMPHOCYTES PERCENT AUTO 24 % (21-46); MONOCYTES ABSOLUTE AUTO 0.87 K/mm3 (0.16-1.47); MONOCYTES PERCENT AUTO 6 % (4-13); Mean Corpuscular HGB 27.8 pg (26.0-34.0); Mean Corpuscular HGB Conc 33.1 g/dL (31.5-36.5); Mean Corpuscular Volume 84 fL (80-100); Mean Platelet Volume 9.6 fL (9.1-12.4); NEUTROPHILS ABSOLUTE AUTO 9.61 K/mm3 (1.96-9.15); NEUTROPHILS PERCENT AUTO 69 % (41-73); Platelet Count 166 K/mm3 (150-400); RDW Coefficient Variation 13.9 % (11.7-14.2); RDW Standard Deviation 43.1 fL (35.1-46.3); Red Blood Cell Count 4.68 M/mm3 (3.80-5.20); White Blood Cell Count 13.89 K/mm3 (4.00-11.30)
[2024-05-20] MEDS ORDERED: Ipratropium/Albuterol SulF 2.5-0.5MG/3 ML Amp INH ONE (14:00)
[2024-05-20 14:01] LABS: Albumin, Blood 2.4 g/dL (3.4-5.0); Albumin/Globulin Ratio 0.6 (0.8-1.8); Calcium, Blood 8.6 mg/dL (8.5-10.1); Creatinine, Blood 0.88 mg/dL (0.40-1.00); Globulin, Blood 3.9 g/dL (2.2-4.0); Potassium, Blood 3.7 mmol/L (3.5-5.5); Total Protein, Blood 6.3 g/dL (6.4-8.2)
[2024-05-20] MEDS ORDERED: Albuterol 2.5 MG/3 ML VIAL INH SCH (15:35)
[2024-05-20] MEDS ORDERED: MethylPREDNISolone Sod Succ 125 MG Vial IV ONE (15:35)
[2024-05-20] MEDS ORDERED: LevoFLOXacin 500 MG Tab PO ONE (15:50)
[2024-05-20] MEDS ORDERED: BREO ELLIPTA 11 EAC1 IH (17:04)
[2024-05-20] MEDS ORDERED: BREO ELLIPTA 11 EAC1 (17:05)
[2024-05-20] MEDS ORDERED: BREO ELLIPTA 11 EAC1 PO (17:07)
[2024-05-20] MEDS ORDERED: Ondansetron HCl 2 MG / ML 2ML Vial IV PRN (17:30)
[2024-05-20] MEDS ORDERED: LORazepam 1 MG Tab PO PRN (17:35)
[2024-05-20] MEDS ORDERED: FLU VACC TS2024-25(6MOS UP)/PF 45 MCG/0.5 ML SYRINGE IM ONE (17:35)
[2024-05-20] MEDS ORDERED: Albuterol 2.5 MG/3 ML VIAL INH PRN (17:40)
[2024-05-20] MEDS ORDERED: Ipratropium/Albuterol SulF 2.5-0.5MG/3 ML Amp INH SCH (17:40)
[2024-05-20] MEDS ORDERED: NS 1,000 ML IV SCH (19:00)
[2024-05-20 20:13] VITALS: BP 163/57
[2024-05-20] MEDS ORDERED: Famotidine 20 MG Tab PO SCH (21:00)
[2024-05-20] MEDS ORDERED: Metoprolol Succinate 50 MG TABCR PO SCH (21:00)
[2024-05-20] MEDS ORDERED: Lactobacil 2-S.Thermo-Bifido 1 1 Cap PO SCH (21:00)
[2024-05-20] MEDS ORDERED: GuaiFENesin 600 MG TabCR PO SCH (21:00)
[2024-05-20] MEDS ORDERED: Insulin Glargine-Yfgn 100 Unit/mL 3 ML SYR SC SCH (21:00)
--- NOTE | 2024-05-20 21:54 | NUR ---
TRANSFER SUMMARY: PT TRANSFERRED FROM ER @1999, PT CAME UP BY WHEELCHAIR AND STAND PIVOTED INTO BED WITHOUT ISSUE. PT AND FAMILY ORIENTED TO ROOM.
[2024-05-21] MEDS ORDERED: MethylPREDNISolone Sod Succ 125 MG Vial IV SCH
[2024-05-21 02:02] VITALS: BP 153/76
--- NOTE | 2024-05-21 04:53 | NUR ---
SHIFT SUMMARY: PT AOX4, PLEASANT MOOD AND AFFECT. HARD OF HEARING. HAS BEEN ON ROOM AIR SATTING WELL. TOLERATING STEROIDS AND BREATHING TREATMENT. STATES THEY NORMALLY TAKE ALL THEIR DAILY MEDICATIONS AT NIGHT. AND CURIOUS ABOUT THE MEDICATIONS BEING TAKEN, TEACHING PROVIDED. PT BREATHING WELL AND STATES THEY FEEL MUCH BETTER AFTER BREATHING TREATMENTS. PT RESTING IN BED, BED IN LOWEST POSITION, CALL LIGHT IN REACH. CONTINUING CARE.
[2024-05-21 05:51] LABS: Hematocrit 37.8 % (33.0-51.0); Hemoglobin 12.2 g/dL (11.5-16.0); Mean Corpuscular HGB 27.4 pg (26.0-34.0); Mean Corpuscular HGB Conc 32.3 g/dL (31.5-36.5); Mean Corpuscular Volume 85 fL (80-100); Mean Platelet Volume 9.9 fL (9.1-12.4); Platelet Count 168 K/mm3 (150-400); RDW Coefficient Variation 13.9 % (11.7-14.2); RDW Standard Deviation 43.5 fL (35.1-46.3); Red Blood Cell Count 4.46 M/mm3 (3.80-5.20)
[2024-05-21] MEDS ORDERED: Levothyroxine Sodium 0.088 MG Tab PO SCH (06:00)
[2024-05-21 06:03] LABS: Bun/Creatinine Ratio 28.2 (12.0-20.0); Calcium, Blood 8.9 mg/dL (8.5-10.1); Creatinine, Blood 0.82 mg/dL (0.40-1.00); Magnesium, Blood 2.2 mg/dL (1.6-2.4); Potassium, Blood 4.4 mmol/L (3.5-5.5)
[2024-05-21 07:05] VITALS: BP 142/84
[2024-05-21] MEDS ORDERED: Insulin Human Lispro 100 Units/ML 3ML Syringe SC SCH ×2 (07:30→11:30)
[2024-05-21] MEDS ORDERED: Atorvastatin 40 MG Tab PO SCH (09:00)
[2024-05-21] MEDS ORDERED: Rivaroxaban 10 MG Tab PO SCH (09:00)
[2024-05-21] MEDS ORDERED: PredniSONE 20 MG Tab PO SCH (10:00)
[2024-05-21] MEDS ORDERED: Loratadine 10 MG Tab PO SCH (10:00)
[2024-05-21] MEDS ORDERED: LevoFLOXacin 750 MG/D5W 150ML 150 ML IV SCH (12:00)
[2024-05-21 15:39] VITALS: BP 139/71
--- NOTE | 2024-05-21 16:32 | NUR ---
SUMMARY NO ACUTE CHANGES THIS SHIFT. PT REPORTS FEELING BETTER TODAY THAN YESTERDAY. R/A. CONT PULSE OX STATIONED OUTSIDE OF THE ROOM. PT INDEPENDENTLY AMBULATING TO THE BATHROOM. SIOMARA ASSISTED WITH SHOWER TODAY. PT MAINTAINED SAT >92% THIS SHIFT. COUGH IS HARSH AND PRODUCTIVE, BREATHING TREATMENTS PER EMAR. CBG IN 300S THIS SHIFT. AWARE, TREATED PER EMAR. PT ORIENTED X4, ABLE TO EXPRESS NEEDS, CALLS APPROPRIATELY. PLAN FOR 1-2 MORE DAYS BEFORE DISCHARGE
[2024-05-21 20:08] VITALS: BP 158/75
[2024-05-22 02:57] VITALS: BP 146/83
--- NOTE | 2024-05-22 05:47 | NUR ---
SHIFT SUMMARY PT AWAKE MOST OF SHIFT. PT WITH A DRY, HACKING COUGH WITH OCCASIONAL SMALL THICK, YELLOW/PINK SPUTUM. REQUESTED PRN SVN X1. CONTINOUS PULSE OX WITH SATS > 90% ON RA. PT MEDICATED X1 WITH ATIVAN FOR ANXIETY RELATED TO COUGHING- SEE EMAR. PT STATES SHE HAD A COUPLE OF EPISODES THIS SHIFT OF FORGETTING SHE WAS IN THE HOSPITAL, AND THINKING HER WAS LAYING BESIDE HER. PT IS O X4, OTHERWISE. BED IN LOWEST POSITION, SIDE RAILS UP X2, CALL LIGHT WITHIN REACH.
[2024-05-22 07:24] VITALS: BP 156/62
[2024-05-22] MEDS ORDERED: Losartan Potassium 25 MG Tab PO SCH (09:00)
[2024-05-22] MEDS ORDERED: Insulin Glargine-Yfgn 100 Unit/mL 3 ML SYR SC SCH (09:00)
[2024-05-22] MEDS ORDERED: Benzocaine Oral Spray 0.5ML UD MT PRN (09:10)
--- NOTE | 2024-05-22 11:00 | NUR ---
"Spiritual Care Visit | Pt. request Pt. is awake in bed and daughter is at bedside. At first the Pt. displayed evidence of feeling awkward and dismissive. As this jitney driver facilitated a life review, the pt. began to display evidence of trust and ultimately a robust sense of humor. Considered matters of rommel and belief. Listened with interest and empathy. Pt. displayed evidence of being encouraged and uplifted as did her daughter at bedside. Prayed for pt. Both daughter and Pt. verbalized gratitude for the spiritual care visit."
[2024-05-22] MEDS ORDERED: HyDROXyzine HCl 10 MG Tab PO PRN (13:55)
[2024-05-22 15:57] VITALS: BP 151/73
--- NOTE | 2024-05-22 16:31 | NUR ---
SHIFT SUMMARY: PER REPORTS FROM NOC RN, PATIENT SLEPT FOR 2 HRS LAST NIGHT AND RECEIVED ONE DOSE OF ATIVAN. PATIENT A/OX3, INTERMITTENT CONFUSION AND FORGETFUL T/O THE DAY, BUT EASILY REDIRECTABLE. PATIENT SIOMARA CAME IN FOR VISIT THIS AM AND EXPRESSESS CONCERNED c PATIENT "NEW CONFUSIONS." NOTIFIED DR. ROLON REGARDING THIS CONCERNED, HELD DC'D HOME TODAY. PATIENT CONTINUES TO HAVE DRY NONPRODCTIVE COUGH, RA SATTING 92-95%. PATIENT DENIES CP/PRESSURE, SOB, N/V AND DIZZINESS. PATIENT HAS GOOD APPETITE, CONTINENT OF BOWEL/BLADDER, AMBULATES IN ROOM INDEPENDENTLY T/O SHIFT. VITAL SIGNS REVIEWED. CALL LIGHT IN REACH.
--- NOTE | 2024-05-22 18:35 | NUR ---
ADDITIONAL NOTE: PATIENT SIOMARA GUILLEN CALLED AROUND 1800 FOR AN UPDATES AND REPORTS PATIENT NORMALLY TAKES 9 MG OF MELATONIN AT HOME EVERY NIGHT TO HELP HER SLEEP. NOTIFIED DR. ROLON REGARDING THIS ISSUE, RECEIVED ORDER TO GIVE PO MELATONIN 9 MG AT 2100.
[2024-05-22 19:20] VITALS: BP 145/57
[2024-05-22] MEDS ORDERED: Melatonin 5 MG Tablet PO SCH (21:00)
[2024-05-23] MEDS ORDERED: Benzonatate 100 MG Cap PO PRN (01:30)
[2024-05-23 03:52] VITALS: BP 158/89
--- NOTE | 2024-05-23 06:32 | NUR ---
SHIFT SUMMARY PT CONTINUES WITH HACKING, DRY COUGH. ORDER RECEIVED FOR TRAVIS DUNN. CONTINOUS PULSE OX WITH O2 SATS >92% ON RA. PT ABLE TO SLEEP LONG INTERVALS THROUGH THE NIGHT. PT ABLE TO ANSWER ORIENTATION QUESTIONS, BUT CONFUSED AT TIMES, THINKING SHE IS AT HOME. EPISODES OF CONFUSION LESS THIS EARLY AM. PT INDEPENDENT IN ROOM. BED IN LOWEST POSITION, CALL LIGHT WITHIN REACH, SIDE RAILS UP X2.
[2024-05-23 07:52] VITALS: BP 153/62
[2024-05-23] MEDS ORDERED: Losartan Potassium 50 MG Tab PO SCH (09:00)
[2024-05-23] MEDS ORDERED: HURRICAINE ONE1 EACH MT (11:46)
[2024-05-23] MEDS ORDERED: LOSA50 PO (11:47)
[2024-05-23] MEDS ORDERED: LACT PO (11:47)
[2024-05-23] MEDS ORDERED: LEVOFLOXACIN PO (11:48)
--- NOTE | 2024-05-23 15:02 | NUR ---
SHIFT/DISCHARGE SUMMARY: PATIENT A/OX3-4, ANSWER TO QUESTIONS APPROPRIATELY AND ABLE TO MAKE NEEDS KNOWN. PATIENT REPORTS FEELING A LOT BETTER TODAY COMPARED YESTERDAY. PATIENT DENIES CP/PRESSURE, SOB, N/V AND DIZZINESS. PATIENT RECEIVED SCHEDULED IV ABX/MEDS PER EMAR. PATIENT HAS GOOD APPETITE CONTINENT OF BOWEL/BLADDER AND AMBULATES TO BATHROOM INDEPENDENTLY T/O SHIFT. PIV WAS DC'D BY ABILIO WEEKS. PATIENT DISCHARGE HOME. DISCHARGE INSTRUCTIONS PACKET GIVEN TO PATIENT. PATIENT EDUCATED ON ADMITTING DX'S OF INFLUENZA, S/S, TX, NEW PRESCRIBED RX AND TO F/U c PCP. PATIENT VERBALIZED UNDERSTANDING AND NO FURTHER QUESTIONS. [facility] ALL PERSONAL BELONGINGS WERE SENT HOME c THE PATIENT. PATIENT LEFT THE ROOM AT 1347, TRANSPORTED VIA WHEELCHAIR BY ABILIO WEEKS TO PATIENT ENTRANCE.
== END 2024-05-23 14:41 | disposition home health service (06) | DRG 871 ==
LOC: ER 13:16 → MEDS 18:42 → ENPENDDIS 05-23 13:44 → MEDS 05-23 14:41
PROVIDERS: Emergency Medicine; Nurse Practitioner Acute Care; ADMIT Student in an Organized Health Care Education/Training Program
DX: A41.9 Sepsis, unspecified organism (principal); G92.8 Other toxic encephalopathy; J15.9 Unspecified bacterial pneumonia; J96.01 Acute respiratory failure with hypoxia; J45.901 Unspecified asthma with (acute) exacerbation; E11.9 Type 2 diabetes mellitus without complications; I48.0 Paroxysmal atrial fibrillation; J11.1 Influenza due to unidentified influenza virus with other respiratory manifestations; E03.9 Hypothyroidism, unspecified; F32.A Depression, unspecified; F41.9 Anxiety disorder, unspecified; E78.5 Hyperlipidemia, unspecified; Z79.890 Hormone replacement therapy; Z79.4 Long term (current) use of insulin; Z79.899 Other long term (current) drug therapy; Z79.01 Long term (current) use of anticoagulants; Z88.1 Allergy status to other antibiotic agents; Z88.0 Allergy status to penicillin; Z88.8 Allergy status to other drugs, medicaments and biological substances; Z88.2 Allergy status to sulfonamides; Z90.710 Acquired absence of both cervix and uterus; Z90.49 Acquired absence of other specified parts of digestive tract
CPT/HCPCS: 36415; 71046; 80048; 80053; 82947; 83735; 84145; 85025; 85027; 87070; 87205; 93005; 93010; 94640; 94644; 94664; 94760; 94762; 96374; 99285-25; A9270; J1815; J1956; J2919; J7030; J7512

== ENCOUNTER 2024-07-16 09:46 | Day surgery (SDC) | payer MEDICARE, OTHER ==
[~2024-07-16] VITALS: Ht 154.9 cm; Wt 87.8 kg
[~2024-07-16 09:46] MED LIST changes: +BREO ELLIPTA 11 EAC1; +BREO ELLIPTA 11 EAC1 IH; +BREO ELLIPTA 11 EAC1 PO; +Balanced Salt Epinephrine Irrigation Solution 500 mL IR SCH; +Diazepam 5 MG Tab PO PRN; +Diazepam 5 MG Tab PO SCH; +HURRICAINE ONE1 EACH MT; +LACT PO; +LEVOFLOXACIN PO; +LOSA50 PO; +Lidocaine HCl/Pf 1% 5 ML VIAL XX SCH; +Ondansetron 4 MG SoluTab MM PRN; +PHENYLEPHRINE\\TROPICAMIDE\\TETRACAINE OPHTHALMIC DILATING SOLN RIGHTEYE PRN; +Povidone-Iodine 450 DROP/30 ML Solution ONE; +Povidone-Iodine 450 DROP/30 ML Solution RIGHTEYE SCH; +Tetracaine HCl/Pf 0.5% Opth Soln 4 ml ONE; +Triamcinolone Inj Susp 40 MG / ML 1ML Vial INJ SCH; +Triamcinolone Inj Susp 40 MG / ML 1ML Vial ONE
[2024-07-16] MEDS ORDERED: Midazolam HCl 1MG / ML 2ML Vial ONE (10:46)
[2024-07-16 11:19] VITALS: BP 125/61
--- NOTE | 2024-07-16 11:24 | NUR ---
07/16/24 1124 Danielle Ivey WARM BLANKET APPLIED
== END 2024-07-16 11:37 | disposition home or self-care (01) ==
LOC: ORSCSDS 09:46
PROVIDERS: Ophthalmology
PROC: 08RJ3JZ Replacement of Right Lens with Synthetic Substitute, Percutaneous Approach (ICD-10-PCS; principal; 2024-07-16 11:00)
DX: E11.36 Type 2 diabetes mellitus with diabetic cataract (principal); Z96.1 Presence of intraocular lens; H35.89 Other specified retinal disorders; H35.54 Dystrophies primarily involving the retinal pigment epithelium; I48.91 Unspecified atrial fibrillation; I10 Essential (primary) hypertension; J45.909 Unspecified asthma, uncomplicated; F32.A Depression, unspecified; Z79.4 Long term (current) use of insulin; Z79.899 Other long term (current) drug therapy
CPT/HCPCS: 82947; J2250; J3301; V2632

== ENCOUNTER 2024-12-03 10:44 | Observation (INO) | payer MEDICARE, OTHER ==
[~2024-12-03] VITALS: Ht 154.9 cm; Wt 86.0 kg
[~2024-12-03 10:44] MED LIST changes: -Balanced Salt Epinephrine Irrigation Solution 500 mL IR SCH; -Diazepam 5 MG Tab PO PRN; -Diazepam 5 MG Tab PO SCH; -Lidocaine HCl/Pf 1% 5 ML VIAL XX SCH; -Ondansetron 4 MG SoluTab MM PRN; -PHENYLEPHRINE\\TROPICAMIDE\\TETRACAINE OPHTHALMIC DILATING SOLN RIGHTEYE PRN; -Povidone-Iodine 450 DROP/30 ML Solution ONE; -Povidone-Iodine 450 DROP/30 ML Solution RIGHTEYE SCH; -Tetracaine HCl/Pf 0.5% Opth Soln 4 ml ONE; -Triamcinolone Inj Susp 40 MG / ML 1ML Vial INJ SCH; -Triamcinolone Inj Susp 40 MG / ML 1ML Vial ONE
[2024-12-03 11:45] LABS: BASOPHILS ABSOLUTE AUTO 0.04 K/mm3 (0.00-0.23); BASOPHILS PERCENT AUTO 1 % (0-2); EOSINOPHILS ABSOLUTE AUTO 0.09 K/mm3 (0.00-0.68); EOSINOPHILS PERCENT AUTO 1 % (0-6); Hematocrit 40.3 % (33.0-51.0); Hemoglobin 13.2 g/dL (11.5-16.0); IMMATURE GRAN ABSOLUTE AUTO 0.02 K/mm3 (0.00-0.10); IMMATURE GRAN PERCENT AUTO 0 % (0-1); LYMPHOCYTES ABSOLUTE AUTO 1.98 K/mm3 (0.84-5.20); LYMPHOCYTES PERCENT AUTO 24 % (21-46); MONOCYTES ABSOLUTE AUTO 0.47 K/mm3 (0.16-1.47); MONOCYTES PERCENT AUTO 6 % (4-13); Mean Corpuscular HGB Conc 32.8 g/dL (31.5-36.5); Mean Corpuscular Volume 83 fL (80-100); NEUTROPHILS ABSOLUTE AUTO 5.63 K/mm3 (1.96-9.15); NEUTROPHILS PERCENT AUTO 68 % (41-73); NRBC ABSOLUTE 0.00 K/mm3 (0.00-0.02); NRBC Auto 0.0 /100 WBC (0.0-0.2); Platelet Count 193 K/mm3 (150-400); RDW Coefficient Variation 13.8 % (11.7-14.2); RDW Standard Deviation 41.8 fL (35.1-46.3)
[2024-12-03 12:09] LABS: Source, Urine Clean Catch
[2024-12-03 12:12] LABS: Glucose Qualitative, Urine Neg (Neg); Ketones, Urine Neg (Neg); Leukocyte Esterase, Urine 1+ (Neg); Protein, Urine Neg (Neg); Specific Gravity, Urine 1.015 (1.003-1.022); Urobilinogen, Urine 1+ (Normal)
[2024-12-03 12:16] LABS: Alanine Aminotransfer (ALT/SGP 21.0 U/L (12-78); Albumin, Blood 3.1 g/dL (3.4-5.0); Albumin/Globulin Ratio 0.9 (0.8-1.8); Anion Gap 8.0 mmol/L (3-11); Aspartate Aminotrans (AST/SGOT 24.0 U/L (12-37); Bilirubin, Total 0.5 mg/dL (0.1-1.0); Blood Urea Nitrogen 13.0 mg/dL (8-24); CO2, Blood 30.0 mmol/L (21-32); Calcium, Blood 8.8 mg/dL (8.5-10.1); Chloride, Blood 104.0 mmol/L (98-108); Creatinine, Blood 0.81 mg/dL (0.40-1.00); Globulin, Blood 3.4 g/dL (2.2-4.0); Glucose, Blood 142.0 mg/dL (70-99); Potassium, Blood 4.1 mmol/L (3.5-5.5); Sodium, Blood 138.0 mmol/L (136-145); Total Protein, Blood 6.5 g/dL (6.4-8.2)
[2024-12-03 12:29] LABS: Bilirubin, Urine 1+ (Neg); Color, Urine Amber (P-Yellow)
[2024-12-03 12:32] LABS: Red Blood Cells, Urine Not Seen /hpf (0-2); White Blood Cells, Urine 0-2 /hpf (0-5)
[2024-12-03] MEDS ORDERED: Prozac20 MG PO (15:48)
[2024-12-03] MEDS ORDERED: METO25ER PO (15:49)
[2024-12-03 17:47] VITALS: BP 148/57
[2024-12-03 19:32] VITALS: BP 148/48
--- NOTE | 2024-12-03 19:39 | NUR ---
ASSUMPTION OF CARE CLIENT RECIEVED FROM ED LEFT ARM NUMBNESS. AOX4. DIET IS CONSTANT CARB WITH CHEM CHECKS AC/HS. ORDERS FOR TELE RECIEVED AND IMPLIMENTED, NORMAL SINUS RYTHM. WHILE IN ED, TROPONIN WENT FROM 15 TO 24 AT 1324. AT 1708, TROPONIN WAS 23. FAMILY IN ROOM. BED IS IN LOW POSITION AND CALL LIGHT IS WITHIN REACH
[2024-12-03] MEDS ORDERED: Insulin Glargine-Yfgn 100 Unit/mL 3 ML SYR SC SCH (21:00)
[2024-12-03] MEDS ORDERED: Insulin Human Lispro 100 Units/ML 3ML Syringe SC SCH (21:00)
[2024-12-04 00:45] VITALS: BP 144/50
--- NOTE | 2024-12-04 04:26 | NUR ---
SHIFT SUMMARY PT ALERT ORIENTED ABLE TO VERBALIZE NEEDS GETS UP AND AMBULATES TO BATHROOM AD EAMON. SHE HAD A I&D OF THE PERIRECTAL ABCESS DONE YESTERDAY. THE AREA LOOKS GOOD WITH SEROSANGUINOUS DRAINAGE. THE AREA IS KEPT CLEAN AND DRY. REMAINS ON UNASYN Q6HR. REMAINS ON NORCO PRN. VSS ON RA. FS DONE AC AND HS WAS 223. [RESTING IN BED AT THIS TIME WITH CALL LIGHT IN REACH
--- NOTE | 2024-12-04 04:35 | NUR ---
SHIFT SUMMARY PT WAS ADMITTED TO ROOM AT 1730 FROM THE ER. PT ALERT ORIENTED ABLE TO VERBALIZE NEEDS. GETS UP IN ROOM AD EAMON. NO C/O CHEST PAIN OR PRESSURE. NO C/O LT ARM NUMBNESS OR TINGLING. REMAINS ON TELEMETRY AT NSR AT 62 WITH OCC PVCS. SHE HAD TROPONINS DRAWN WHICH WERE 15, 24, 23 AND 17. SHES NPO AFTER MIDNIGHT FOR A POSSIBLE STRESS TEST. HER CT SCAN WAS NEGATIVE AND ALL SYMPTOMS HAVE BEEN RESOLVED. SHE REQUESTED TO HAVE HER MELATONIN THAT SHE NORMALLY TAKES AT HOME SO NEW ORDER WAS OBTAINED AND GIVEN. HER FAMILY WAS AT BEDSIDE AT BEGINNING OF SHIFT. SHES RESTING IN BED AT THIS TIME WITH CALL LIGHT IN REACH
[2024-12-04 05:25] VITALS: BP 148/56
[2024-12-04 05:37] LABS: Hematocrit 38.7 % (33.0-51.0); Hemoglobin 12.7 g/dL (11.5-16.0); Mean Corpuscular HGB Conc 32.8 g/dL (31.5-36.5); Mean Corpuscular Volume 85 fL (80-100); NRBC ABSOLUTE 0.00 K/mm3 (0.00-0.02); NRBC Auto 0.0 /100 WBC (0.0-0.2); Platelet Count 189 K/mm3 (150-400); RDW Coefficient Variation 13.8 % (11.7-14.2); RDW Standard Deviation 42.7 fL (35.1-46.3)
[2024-12-04 06:21] LABS: Anion Gap 8 mmol/L (3-11); Blood Urea Nitrogen 13 mg/dL (8-24); CHOL/HDL RATIO 2.7; CO2, Blood 29 mmol/L (21-32); Calcium, Blood 8.6 mg/dL (8.5-10.1); Chloride, Blood 104 mmol/L (98-108); Cholesterol 186 mg/dL (50-200); Creatinine, Blood 0.79 mg/dL (0.40-1.00); Glucose, Blood 152 mg/dL (70-99); HDL Cholesterol 68 mg/dL (>39); LDL/HDL RATIO 1.5; Low Density Lipoprotein Chol 102 mg/dL (0-110); Potassium, Blood 3.8 mmol/L (3.5-5.5); Sodium, Blood 137 mmol/L (136-145); Triglycerides 78 mg/dL (30-160); Very Low Density Lipoprot Chol 15 mg/dL (6-32)
[2024-12-04 07:44] VITALS: BP 135/51
--- NOTE | 2024-12-04 14:25 | NUR ---
DISCHARGE SUMMARY CLIENT IS AOX4. MEDICATION COMPLIANT. DECLINED LEXISCAN, OPTING INSTEAD FOR OUTPATIENT PROCEDURE. DISCHARGE ORDERS RECEIVED. IV AND TELE D/C'D. MEDICATION LIST FAXED TO [facility]. DISCHARGE PACKET GIVEN AND EXPLAINED TO CLIENT. CLIENT OFF OF THE UNIT VIA WHEELCHAIR
== END 2024-12-04 13:01 | disposition home or self-care (01) ==
LOC: ER 10:44 → ERHOLD 16:06 → MEDS 16:06
PROVIDERS: Emergency Medicine; ADMIT Internal Medicine
DX: R20.0 Anesthesia of skin (principal); E11.9 Type 2 diabetes mellitus without complications; E78.5 Hyperlipidemia, unspecified; E03.9 Hypothyroidism, unspecified; I48.0 Paroxysmal atrial fibrillation; J45.30 Mild persistent asthma, uncomplicated; Z79.01 Long term (current) use of anticoagulants; Z79.4 Long term (current) use of insulin; Z79.890 Hormone replacement therapy; Z79.899 Other long term (current) drug therapy; Z88.1 Allergy status to other antibiotic agents; Z88.2 Allergy status to sulfonamides; Z88.5 Allergy status to narcotic agent; Z88.6 Allergy status to analgesic agent; Z88.8 Allergy status to other drugs, medicaments and biological substances
CPT/HCPCS: 36415; 70450; 80048; 80053; 80061; 81001; 82947; 83036; 84443; 84484; 85025; 85027; 87086; 93005; 93010; 99285-25; A9270; G0378; J1815

== ENCOUNTER 2024-12-10 12:04 | Emergency (ER) | payer MEDICARE, OTHER ==
[~2024-12-10] VITALS: Ht 154.9 cm; Wt 87.1 kg
[~2024-12-10 12:04] MED LIST changes: +METO25ER PO; +Prozac20 MG PO
[2024-12-10 13:15] VITALS: BP 148/75
== END 2024-12-10 13:22 | disposition home or self-care (01) ==
LOC: ER 12:04
DX: S09.90XA Unspecified injury of head, initial encounter (principal); S80.02XA Contusion of left knee, initial encounter; S90.812A Abrasion, left foot, initial encounter; W01.0XXA Fall on same level from slipping, tripping and stumbling without subsequent striking against object, initial encounter
CPT/HCPCS: 70450; 72125; 90715; 99284-25

== ENCOUNTER → 2025-04-20 | Outpatient (CLI) | payer MEDICARE, OTHER ==
[2025-04-20 19:28] LABS: BASOPHILS ABSOLUTE AUTO 0.04 K/mm3 (0.00-0.23); BASOPHILS PERCENT AUTO 0 % (0-2); EOSINOPHILS ABSOLUTE AUTO 0.18 K/mm3 (0.00-0.68); EOSINOPHILS PERCENT AUTO 2 % (0-6); Hematocrit 44.7 % (33.0-51.0); Hemoglobin 14.3 g/dL (11.5-16.0); IMMATURE GRAN ABSOLUTE AUTO 0.02 K/mm3 (0.00-0.10); IMMATURE GRAN PERCENT AUTO 0 % (0-1); LYMPHOCYTES ABSOLUTE AUTO 4.47 K/mm3 (0.84-5.20); LYMPHOCYTES PERCENT AUTO 48 % (21-46); MONOCYTES ABSOLUTE AUTO 0.52 K/mm3 (0.16-1.47); MONOCYTES PERCENT AUTO 6 % (4-13); Mean Corpuscular HGB Conc 32.0 g/dL (31.5-36.5); Mean Corpuscular Volume 86 fL (80-100); NEUTROPHILS ABSOLUTE AUTO 4.14 K/mm3 (1.96-9.15); NEUTROPHILS PERCENT AUTO 44 % (41-73); NRBC ABSOLUTE 0.00 K/mm3 (0.00-0.02); NRBC Auto 0.0 /100 WBC (0.0-0.2); Platelet Count 248 K/mm3 (150-400); RDW Coefficient Variation 13.6 % (11.7-14.2); RDW Standard Deviation 42.9 fL (35.1-46.3)
[2025-04-20 19:57] LABS: Alanine Aminotransfer (ALT/SGP 29 U/L (12-78); Albumin, Blood 3.5 g/dL (3.4-5.0); Albumin/Globulin Ratio 1.0 (0.8-1.8); Anion Gap 9 mmol/L (3-11); Aspartate Aminotrans (AST/SGOT 28 U/L (12-37); Bilirubin, Total 0.4 mg/dL (0.1-1.0); Blood Urea Nitrogen 15 mg/dL (8-24); CHOL/HDL RATIO 5.3; CO2, Blood 26 mmol/L (21-32); Calcium, Blood 9.4 mg/dL (8.5-10.1); Chloride, Blood 102 mmol/L (98-108); Cholesterol 366 mg/dL (50-200); Creatinine, Blood 0.75 mg/dL (0.40-1.00); Globulin, Blood 3.4 g/dL (2.2-4.0); Glucose, Blood 224 mg/dL (70-99); HDL Cholesterol 69 mg/dL (>39); LDL/HDL RATIO 3.6; Low Density Lipoprotein Chol 248 mg/dL (0-110); Potassium, Blood 4.4 mmol/L (3.5-5.5); Sodium, Blood 133 mmol/L (136-145); Thyroid Stimulating Hormone 52.800 uIU/mL (0.360-4.800); Total Protein, Blood 6.9 g/dL (6.4-8.2); Triglycerides 247 mg/dL (30-160); Very Low Density Lipoprot Chol 49 mg/dL (6-32)
== END | disposition home or self-care (01) ==
LOC: LAB SHORT 18:50 → LAB 18:50
PROVIDERS: Student in an Organized Health Care Education/Training Program
DX: E03.9 Hypothyroidism, unspecified (principal); E11.9 Type 2 diabetes mellitus without complications; E78.2 Mixed hyperlipidemia; F33.0 Major depressive disorder, recurrent, mild
CPT/HCPCS: 80053; 80061; 83036; 84443; 85025